=== PATIENT | male | born 1990 | race Caucasian/White ===

== ENCOUNTER 2017-08-24 10:22 | Emergency (ER) | payer MEDICAID ==
[2017-08-24 11:01] LABS: microscopic required? NO
[2017-08-24 11:21] LABS: UA SPECIFIC GRAVITY 1.025 (1.005-1.035); urine erythrocyte NEGATIVE (NEGATIVE)
[2017-08-24 11:26] LABS: PLATELET COUNT 189 x10^3mcL (130-400); RED CELL DISTRIBUTION WIDTH 13.5 % (11.5-14.5)
[2017-08-24 11:29] LABS: CALCIUM 8.3 mg/dL (8.5-10.1); CARBON DIOXIDE 26.9 mmol/L (21-32); CHLORIDE SERUM 105 mmol/L (98-107); CREATININE SERUM 0.9 mg/dL (0.7-1.3); GFR1 > 60 mL/min; GLUCOSE SERUM 109 mg/dL (74-106); POTASSIUM SERUM 3.9 mmol/L (3.5-5.1); SODIUM SERUM 139 mmol/L (136-145)
[2017-08-24 11:33] LABS: ALBUMIN 3.5 g/dL (3.4-5.0); ALKALINE PHOSPHATASE 102 U/L (46-116); ALT/SGPT 32 U/L (16-63); AST/SGOT 16 U/L (15-37); BILIRUBIN TOTAL 0.4 mg/dL (0.20-1.00); LIPASE 130 IU/L (73-393); TOTAL PROTEIN, SERUM 7.1 g/dL (6.4-8.2)
[2017-08-24 12:15] LABS: SEGMENTED NEUTROPHILS 48 % (37-75)
[2017-08-24 12:16] LABS: ATYPICAL LYMPH 3 %; BAND NEUTROPHIL 0 % (0-10); MONOCYTE 6 % (0-7); PLATELET MORPHOLOGY N; rbc morphology (normal/abnorm) NORMAL (NORMAL)
[2017-08-24 12:27] VITALS: BP 124/83
== END 2017-08-24 12:27 | disposition home or self-care (01) ==
LOC: ED 10:22
PROVIDERS: Emergency Medicine
DX: R10.9 Unspecified abdominal pain (principal); R11.0 Nausea
CPT/HCPCS: J1885; J2270; J2405; J7030

== ENCOUNTER 2017-11-10 19:41 | Emergency (ER) | payer MEDICAID ==
[~2017-11-10] VITALS: Ht 180.3 cm; Wt 111.6 kg
[2017-11-10 19:46] VITALS: Ht 180.3 cm; Wt 111.6 kg
[2017-11-10 21:25] VITALS: BP 132/85
== END 2017-11-10 21:25 | disposition home or self-care (01) ==
LOC: ED 19:41
DX: J06.9 Acute upper respiratory infection, unspecified (principal); R07.89 Other chest pain

== ENCOUNTER 2017-11-12 16:04 | Emergency (ER) | payer MEDICAID ==
[~2017-11-12] VITALS: Ht 180.3 cm; Wt 109.8 kg
[2017-11-12 16:07] VITALS: BP 141/87; Ht 180.3 cm; Wt 109.8 kg
== END 2017-11-12 17:54 | disposition home or self-care (01) ==
LOC: ED 16:04
DX: S63.502A Unspecified sprain of left wrist, initial encounter (principal); W01.0XXA Fall on same level from slipping, tripping and stumbling without subsequent striking against object, initial encounter; Y93.89 Activity, other specified; Y92.89 Other specified places as the place of occurrence of the external cause; Y99.8 Other external cause status

== ENCOUNTER 2018-04-15 14:39 | Emergency (ER) | payer MEDICAID ==
[~2018-04-15] VITALS: Ht 180.3 cm; Wt 102.0 kg
[2018-04-15 14:45] VITALS: Ht 180.3 cm; Wt 102.0 kg
[2018-04-15 18:05] LABS: BASOPHIL % 0.4 % (0-2); CALCIUM 8.9 mg/dL (8.5-10.1); CARBON DIOXIDE 30.9 mmol/L (21-32); CHLORIDE SERUM 105 mmol/L (98-107); GFR1 > 60 mL/min; GLUCOSE SERUM 100 mg/dL (74-106); PLATELET COUNT 227 x10^3mcL (130-400); POTASSIUM SERUM 4.2 mmol/L (3.5-5.1); RED CELL DISTRIBUTION WIDTH 14.3 % (11.5-14.5); SODIUM SERUM 141 mmol/L (136-145)
[2018-04-15 18:09] LABS: ALBUMIN 3.5 g/dL (3.4-5.0); ALKALINE PHOSPHATASE 99 U/L (46-116); ALT/SGPT 56 U/L (16-63); AST/SGOT 64 U/L (15-37); LIPASE 97 IU/L (73-393); TOTAL PROTEIN, SERUM 7.1 g/dL (6.4-8.2)
[2018-04-15 18:30] VITALS: BP 166/93
== END 2018-04-15 18:48 | disposition home or self-care (01) ==
LOC: ED 14:39
PROVIDERS: Emergency Medicine
DX: K80.20 Calculus of gallbladder without cholecystitis without obstruction (principal); F12.10 Cannabis abuse, uncomplicated
CPT/HCPCS: Q0092; Q0162

== ENCOUNTER 2018-08-23 00:45 | Emergency (ER) | payer MEDICAID ==
[~2018-08-23] VITALS: Ht 182.9 cm; Wt 100.7 kg
[2018-08-23 00:48] VITALS: BP 138/79; Ht 182.9 cm; Wt 100.7 kg
== END 2018-08-23 01:45 | disposition home or self-care (01) ==
LOC: ED 00:45
DX: M54.16 Radiculopathy, lumbar region (principal)
CPT/HCPCS: J1885